=== PATIENT | male | born 2000 | race Caucasian/White ===

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

== ENCOUNTER 2019-07-29 13:03 | Emergency (ER) | payer BC ==
[~2019-07-29] VITALS: Ht 175.3 cm; Wt 111.4 kg
[~2019-07-29 13:03] MED LIST: ELIQUIS 5MG PO; TYLENOL 500MG500 MG PO
[2019-07-29 14:33] LABS: INR 1.3 (0.8-3.0); PROTHROMBIN TIME 15.4 SECONDS (9.7-12.8)
[2019-07-29 14:55] LABS: D-DIMER < 200.00 ng/mLDDu (200-230)
[2019-07-29 16:17] VITALS: BP 112/86; PULSE 96; TEMP 98.2
== END 2019-07-29 16:18 | disposition home or self-care (01) ==
LOC: COL.ER 13:03
PROVIDERS: Physician Assistant
DX: M79.604 Pain in right leg (principal); Z86.718 Personal history of other venous thrombosis and embolism; Z86.711 Personal history of pulmonary embolism; Z88.8 Allergy status to other drugs, medicaments and biological substances; Z79.01 Long term (current) use of anticoagulants
CPT/HCPCS: Q9967

== ENCOUNTER 2021-04-27 02:05 | Emergency (ER) | payer BC ==
[~2021-04-27] VITALS: Ht 175.3 cm; Wt 124.5 kg
[2021-04-27 02:13] VITALS: TEMP 97.8
[2021-04-27] MEDS ORDERED: COUMADIN 1010 MG/TAB PO (02:17)
[2021-04-27 02:46] VITALS: BP 142/87; PULSE 80
== END 2021-04-27 02:46 | disposition home or self-care (01) ==
LOC: COL.ER 02:05
DX: L73.9 Follicular disorder, unspecified (principal); E66.01 Morbid (severe) obesity due to excess calories; F17.210 Nicotine dependence, cigarettes, uncomplicated; Z86.718 Personal history of other venous thrombosis and embolism; Z79.01 Long term (current) use of anticoagulants

== ENCOUNTER 2022-03-13 08:40 | Emergency (ER) | payer BC ==
[~2022-03-13] VITALS: Ht 175.3 cm; Wt 122.7 kg
[~2022-03-13 08:40] MED LIST changes: +COUMADIN 1010 MG/TAB PO
[2022-03-13 08:46] VITALS: TEMP 97.1
[2022-03-13 09:13] LABS: BASO # 0.1 K/mm3 (0.0-0.2); BASO % 1.6 % (0.0-2.0); EOS # 0.3 K/mm3 (0.0-0.7); EOS % 4.3 % (0.0-4.0); GRAN # 3.4 K/mm3 (1.4-6.5); GRAN % 50.9 % (42.2-75.2); HEMATOCRIT 49.2 % (42.0-52.0); HEMOGLOBIN 16.4 g/dl (13.5-18.0); LYMPH # 1.9 K/mm3 (1.2-3.4); LYMPH % 27.7 % (20.0-51.0); MEAN CELL VOLUME 86 fl (80.0-100.0); MEAN CORPUSCULAR HEMOGLOBIN 29 pg (27-31); MEAN CORPUSCULAR HGB CONC 33 g/dl (33.0-37.0); MONO % 15.1 % (1.7-9.3); PLATELET COUNT 288 K/mm3 (130-400); RED BLOOD COUNT 5.72 M/mm3 (4.20-5.60); REDCELL DISTRIBUTION WIDTH-CV 13.4 % (11.5-14.5)
[2022-03-13 09:33] LABS: ALANINE AMINOTRANSFERASE 23 U/L (0-55); ALBUMIN 3.8 gm/dL (3.5-5.0); ALKALINE PHOSPHATASE 79 U/L (40-150); ANION GAP 10 mmol/L (7-16); AST,SGOT 20 U/L (5-34); BILIRUBIN,TOTAL 1.2 mg/dL (0.2-1.2); BLOOD UREA NITROGEN 21 mg/dL (9-21); CALCIUM 9.2 mg/dL (8.4-10.2); CARBON DIOXIDE 24 mmol/L (22-29); CHLORIDE 108 mmol/L (98-107); CREATININE, serum 1.01 mg/dL (0.72-1.25); GLUCOSE 98 mg/dL (70-99); POTASSIUM 3.9 mmol/L (3.5-4.5); SODIUM 142 mmol/L (136-145); TOTAL PROTEIN 7.3 gm/dL (6.2-8.1)
[2022-03-13 09:42] LABS: TROPONIN-I < 0.010 ng/mL (0.00-0.033)
[2022-03-13 10:03] LABS: INR 1.9 (0.8-3.0); PROTHROMBIN TIME 21.8 SECONDS (9.7-12.8)
[2022-03-13 10:06] LABS: PARTIAL THROMBOPLASTIN TIME 40.7 SECONDS (26.0-37.0)
[2022-03-13 10:08] LABS: D-DIMER < 200.00 ng/mLDDu (200-230)
[2022-03-13 11:02] VITALS: BP 113/74; PULSE 70
== END 2022-03-13 11:02 | disposition home or self-care (01) ==
LOC: COL.ER 08:40
PROVIDERS: Emergency Medicine
DX: S70.12XA Contusion of left thigh, initial encounter (principal); R07.89 Other chest pain; R06.00 Dyspnea, unspecified; R79.1 Abnormal coagulation profile; F17.210 Nicotine dependence, cigarettes, uncomplicated; Z86.718 Personal history of other venous thrombosis and embolism; Z79.01 Long term (current) use of anticoagulants; Z28.310 Unvaccinated for COVID-19; X58.XXXA Exposure to other specified factors, initial encounter